=== PATIENT | female | born 1930 | race Caucasian/White ===

== ENCOUNTER 2016-12-03 14:52 | Observation (INO) | payer MEDICARE ==
[~2016-12-03] VITALS: Ht 165.1 cm; Wt 53.6 kg
[~2016-12-03 14:52] MED LIST: COUM5TAB PO; DIGO.125 PO; DONE5TAB14 PO; LORA0.5T PO; TEMA15 PO; VITATAB25 PO
[2016-12-03 15:05] VITALS: BP 151/103; PULSE 70; RESP 16; TEMP 97.9; O2SAT 97
[2016-12-03 16:19] LABS: AUTOMATED NEUTROPHIL # 5.5 TH/MM3 (1.8-7.7); BASOPHIL # 0.1 TH/MM3 (0-0.2); BASOPHIL % 0.8 % (0.0-2.0); EOSINOPHIL # 0.1 TH/MM3 (0-0.4); EOSINOPHIL % 0.7 % (0.0-4.0); HEMATOCRIT 47.8 % (35.0-46.0); HEMO FLAGS DIFF FINAL; LYMPH % 19.4 % (9.0-44.0); LYMPHOCYTE # 1.5 TH/MM3 (1.0-4.8); MEAN CELL VOLUME 98.7 FL (80.0-100.0); MEAN CORPUSCULAR HGB CONC 33.4 % (32.0-36.0); MONO % 9.3 % (0.0-8.0); NEUT % 69.8 % (16.0-70.0); PLATELET COUNT 433 TH/MM3 (150-450); RED BLOOD COUNT 4.84 MIL/MM3 (4.00-5.30); RED CELL DISTRIBUTION WIDTH 12.1 % (11.6-17.2); WHITE BLOOD COUNT 7.9 TH/MM3 (4.0-11.0)
[2016-12-03 16:28] LABS: CHLORIDE 104 MEQ/L (98-107); POTASSIUM 3.9 MEQ/L (3.5-5.1); SODIUM (NA) 140 MEQ/L (136-145)
[2016-12-03 16:31] LABS: ANION GAP 8 MEQ/L (5-15); BICARBONATE 27.6 MEQ/L (21.0-32.0); BLOOD UREA NITROGEN 16 MG/DL (7-18)
[2016-12-03 16:32] LABS: APTT (PATIENT) 43.7 SEC (24.3-30.1); INTERNATIONAL NORMALIZED RATIO 1.7 RATIO; PROTHROMBIN TIME - PATIENT 18.7 SEC (9.8-11.6)
[2016-12-03 16:34] LABS: ALT (GPT) 28 U/L (10-53); AST (GOT) 19 U/L (15-37); GLOMERULAR FILTRATION RATE 52 ML/MIN (>89)
[2016-12-03 16:36] LABS: TOTAL BILIRUBIN ADULT 0.9 MG/DL (0.2-1.0)
[2016-12-03 16:37] LABS: ALKALINE PHOSPHATASE 116 U/L (45-117)
--- NOTE | 2016-12-03 18:10 | PD ---
HPI Chief Complaint: Altered Mental Status Time Seen by Provider: 17:59 Travel History International Travel<30 days: No Contact w/Intl Traveler<30days: No Traveled to known affect area: No History of Present Illness HPI 86 y/o female presents with family after being seen at [facility] 2 times for a pelvic fracture on the right and another visit for a urinary tract infection. She just got started on ciprofloxacin and she's had a decline in her mental status. They state that she hasn't had an additional fall but they cannot take care of her at home given her decline. She hasn't had other complaints. History is limited from patient and mainly obtained from family. PFSH Past Medical History Arthritis: Yes Blood Disorders: No Heart Rhythm Problems: Yes (a-fib) Cancer: No Cardiovascular Problems: Yes Diminished Hearing: Yes (HEARING AIDS) Endocrine: No Genitourinary: No Immune Disorder: No Musculoskeletal: Yes Neurologic: No Psychiatric: No Reproductive: No Respiratory: No Menopausal: Yes Past Surgical History Abdominal Surgery: Yes (appendectomy) Appendectomy: Yes Gynecologic Surgery: Yes (hysterectomy) Hysterectomy: Yes Joint Replacement: Yes (melisa hips) Social History Alcohol Use: Yes (wine occ) Tobacco Use: No Substance Use: No Allergies-Medications (Allergen,Severity, Reaction): Coded Allergies: Tetanus Toxoid (Verified Allergy, Severe, 12/03/16) Uncoded Allergies: SOB (Allergy, Unknown, 06/27/03) TETNAUS (Allergy, Unknown, 06/27/03) Reported Meds & Prescriptions Reported Meds & Active Scripts Active Reported Xarelto (Rivaroxaban) 20 Mg Tab 20 Mg PO DAILY Digoxin 0.25 Mg Tab 0.25 Mg PO DAILY Ciprofloxacin (Ciprofloxacin HCl) 500 Mg Tab 500 Mg PO BID Oxycodone (Oxycodone HCl) 5 Mg Tab 5 Mg PO Q8H PRN Review of Systems ROS Limitations: Poor Historian Except as stated in HPI: all other systems reviewed are Neg Physical Exam Narrative General: 86 y/o patient in no apparent distress Skin: Warm and dry Eyes: Pupils equal NECK: no pain with range of motion Cardiovascular: Regular rate and rhythm Respiratory: Normal respiratory effort noted Abdomen: soft, nontender, nondistended Extremities: Pain with palpation of right upper pelvis, neurovascularly intact, no pain with rom of other joints Neuro: awake, moves all extremities, clear speech Data Data Last Documented VS Vital Signs Date Time Temp Pulse Resp B/P Pulse Ox O2 Delivery O2 Flow Rate FiO2 12/03/16 15:05 97.9 70 16 151/103 97 Orders Complete Blood Count With Diff (12/03/16 15:51) Comprehensive Metabolic Panel (12/03/16 15:51) Prothrombin Time / Inr (Pt) (12/03/16 15:51) Act Partial Throm Time (Ptt) (12/03/16 15:51) Ct Brain W/O Iv Contrast(Rout) (12/03/16 15:51) Urinalysis - C+S If Indicated (12/03/16 15:51) Digoxin (12/03/16 15:53) Pelvis, Ap Only (Routine) (12/03/16 ) Cath For Specimen (12/03/16 18:35) Labs Laboratory Tests Test 12/03/16 16:10 White Blood Count 7.9 TH/MM3 Red Blood Count 4.84 MIL/MM3 Hemoglobin 16.0 GM/DL Hematocrit 47.8 % Mean Corpuscular Volume 98.7 FL Mean Corpuscular Hemoglobin 33.0 PG Mean Corpuscular Hemoglobin 33.4 % Concent Red Cell Distribution Width 12.1 % Platelet Count 433 TH/MM3 Mean Platelet Volume 7.0 FL Neutrophils (%) (Auto) 69.8 % Lymphocytes (%) (Auto) 19.4 % Monocytes (%) (Auto) 9.3 % Eosinophils (%) (Auto) 0.7 % Basophils (%) (Auto) 0.8 % Neutrophils # (Auto) 5.5 TH/MM3 Lymphocytes # (Auto) 1.5 TH/MM3 Monocytes # (Auto) 0.7 TH/MM3 Eosinophils # (Auto) 0.1 TH/MM3 Basophils # (Auto) 0.1 TH/MM3 CBC Comment DIFF FINAL Differential Comment Prothrombin Time 18.7 SEC Prothromb Time International 1.7 RATIO Ratio Activated Partial 43.7 SEC Thromboplast Time Sodium Level 140 MEQ/L Potassium Level 3.9 MEQ/L Chloride Level 104 MEQ/L Carbon Dioxide Level 27.6 MEQ/L Anion Gap 8 MEQ/L Blood Urea Nitrogen 16 MG/DL Creatinine 1.00 MG/DL Estimat Glomerular Filtration 52 ML/MIN Rate Random Glucose 89 MG/DL Calcium Level 9.4 MG/DL Total Bilirubin 0.9 MG/DL Aspartate Amino Transf 19 U/L (AST/SGOT) Alanine Aminotransferase 28 U/L (ALT/SGPT) Alkaline Phosphatase 116 U/L Total Protein 7.4 GM/DL Albumin 3.7 GM/DL Digoxin Level 2.2 NG/ML MDM Medical Decision Making Medical Screen Exam Complete: Yes Emergency Medical Condition: Yes Medical Record Reviewed: Yes (past history confirm, had consents signed for records) Interpretation(s) CBC & BMP Diagram 12/03/16 16:10 Last [address] 12/03/16 1551 Signed Impressions: Service Date/Time: Thursday, December 03, 2016 17:57 - CONCLUSION: 1. No acute abnormality seen. 2. Mild atrophy. Bryson Oglesby MD Differential Diagnosis UTI, hyponatremia, intracranial, medication effect Narrative Course Ordered blood work, urinalysis, CT brain in triage after discussion with Dr. Andrade who is a family member. When patient got back in room added on pelvic x- ray as outside facility report not available yet. Blood work shows no emergent findings will await urine and imaging and reevaluate Physician Communication Physician Communication dr iyer to follow ua and reeval Karen Wiggins MD Dec 03, 2016 18:10
--- NOTE | 2016-12-03 18:21 | RADHPO ---
EXAM DATE/TIME: 12/03/2016 17:57 [facility] COMPARISON: No previous studies available for comparison. INDICATIONS : Altered mental status. RADIATION DOSE: 62.64 CTDIvol (mGy) MEDICAL HISTORY : None SURGICAL HISTORY : None. ENCOUNTER: Initial ACUITY: 1 day PAIN SCALE: 0/10 LOCATION: cranial TECHNIQUE: Multiple contiguous axial images were obtained of the head. Using automated exposure control and adj ustment of the mA and/or kV according to patient size, radiation dose was kept as low as reasonably a chievable to obtain optimal diagnostic quality images. FINDINGS: CEREBRUM: The ventricles and sulci are mildly widened. No evidence of midline shift, mass lesion, hemorrhage o r acute infarction. No extra-axial fluid collections are seen. POSTERIOR FOSSA: The cerebellum and brainstem are intact. The 4th ventricle is midline. The cerebellopontine angle i s unremarkable. EXTRACRANIAL: The visualized portion of the orbits is intact. SKULL: The calvaria is intact. No evidence of skull fracture. CONCLUSION: 1. No acute abnormality seen. 2. Mild atrophy. Bryson Oglesby MD on December 03, 2016 at 18:19 Board Certified Radiologist. This report was verified electronically.
[2016-12-03] MEDS ORDERED: DIGO0.25 PO (18:25)
[2016-12-03] MEDS ORDERED: OXYC-392 PO (18:25)
[2016-12-03] MEDS ORDERED: CIPR500T2 PO (18:25)
[2016-12-03] MEDS ORDERED: XARE20TA PO (18:25)
--- NOTE | 2016-12-03 19:10 | RADHPO ---
EXAM DATE/TIME: 12/03/2016 18:31 [facility] COMPARISON: CT ABDOMEN & PELVIS W CONTRAST, December 11, 2014, 3:27. INDICATIONS : Right side pelvis pain after fall. MEDICAL HISTORY : None. SURGICAL HISTORY : None. ENCOUNTER: Initial ACUITY: 2 weeks PAIN SCORE: 8/10 LOCATION: Right pelvis FINDINGS: The patient has bilateral hip prosthesis in place. There does appear to be increased density seen at the inferior pubic rami on the right. This could be from a fracture deformity. It also could be chr onic. It was not present on a prior CT of the abdomen and pelvis performed on 12/11/2014. No other possible fracture is seen. CONCLUSION: Area of increased density seen at the inferior pubic rami on the right. This could p otentially represent a fracture deformity. No other possible fracture is seen. The patient has bilat eral hip prostheses in place. Bryson Oglesby MD on December 03, 2016 at 19:02 Board Certified Radiologist. This report was verified electronically.
[2016-12-03 19:35] VITALS: BP 204/96; PULSE 73; RESP 16; O2SAT 95
[2016-12-03 19:43] LABS: BLOOD, URINE NEG (NEG); GLUCOSE,URINE NEG (NEG); KETONE, URINE TRACE mg/dL (NEG); PH, URINE 5.5 (5.0-8.5)
[2016-12-03 19:48] LABS: NITRITE,URINE POS (NEG)
[2016-12-03 19:50] LABS: METHOD OF COLLECTION CATH; RBC, URINE 0-3 /hpf (0-3); URINE COLOR YELLOW (YELLW/STRAW); WBC, URINE 0-2 /hpf (0-5)
[2016-12-03 19:51] LABS: COMMENT (UR) CULT NOT INDICATED; CULTURE IF INDICATED CULT NOT INDICATED
[2016-12-03 20:10] VITALS: BP 223/94; PULSE 63; RESP 16; O2SAT 97
--- NOTE | 2016-12-03 20:50 | PD ---
Physical Exam Time Seen by Provider: 20:[address] White left this patient with me to check the results of the urine and make a disposition. Data Data Last Documented VS Vital Signs Date Time Temp Pulse Resp B/P Pulse Ox O2 Delivery O2 Flow Rate FiO2 12/03/16 20:10 63 16 223/94 97 Room Air 12/03/16 15:05 97.9 Orders Complete Blood Count With Diff (12/03/16 15:51) Comprehensive Metabolic Panel (12/03/16 15:51) Prothrombin Time / Inr (Pt) (12/03/16 15:51) Act Partial Throm Time (Ptt) (12/03/16 15:51) Ct Brain W/O Iv Contrast(Rout) (12/03/16 15:51) Urinalysis - C+S If Indicated (12/03/16 15:51) Digoxin (12/03/16 15:53) Pelvis, Ap Only (Routine) (12/03/16 ) Cath For Specimen (12/03/16 18:35) Labs Laboratory Tests Test 12/03/16 12/03/16 16:10 19:30 White Blood Count 7.9 TH/MM3 Red Blood Count 4.84 MIL/MM3 Hemoglobin 16.0 GM/DL Hematocrit 47.8 % Mean Corpuscular Volume 98.7 FL Mean Corpuscular Hemoglobin 33.0 PG Mean Corpuscular Hemoglobin 33.4 % Concent Red Cell Distribution Width 12.1 % Platelet Count 433 TH/MM3 Mean Platelet Volume 7.0 FL Neutrophils (%) (Auto) 69.8 % Lymphocytes (%) (Auto) 19.4 % Monocytes (%) (Auto) 9.3 % Eosinophils (%) (Auto) 0.7 % Basophils (%) (Auto) 0.8 % Neutrophils # (Auto) 5.5 TH/MM3 Lymphocytes # (Auto) 1.5 TH/MM3 Monocytes # (Auto) 0.7 TH/MM3 Eosinophils # (Auto) 0.1 TH/MM3 Basophils # (Auto) 0.1 TH/MM3 CBC Comment DIFF FINAL Differential Comment Prothrombin Time 18.7 SEC Prothromb Time International 1.7 RATIO Ratio Activated Partial 43.7 SEC Thromboplast Time Sodium Level 140 MEQ/L Potassium Level 3.9 MEQ/L Chloride Level 104 MEQ/L Carbon Dioxide Level 27.6 MEQ/L Anion Gap 8 MEQ/L Blood Urea Nitrogen 16 MG/DL Creatinine 1.00 MG/DL Estimat Glomerular Filtration 52 ML/MIN Rate Random Glucose 89 MG/DL Calcium Level 9.4 MG/DL Total Bilirubin 0.9 MG/DL Aspartate Amino Transf 19 U/L (AST/SGOT) Alanine Aminotransferase 28 U/L (ALT/SGPT) Alkaline Phosphatase 116 U/L Total Protein 7.4 GM/DL Albumin 3.7 GM/DL Digoxin Level 2.2 NG/ML Urine Collection Type CATH Urine Color YELLOW Urine Turbidity CL Urine pH 5.5 Urine Specific [place] 1.025 Urine Protein TRACE mg/dL Urine Glucose (UA) NEG mg/dL Urine Ketones TRACE mg/dL Urine Occult Blood NEG Urine Nitrite POS Urine Bilirubin NEG Urine Leukocyte Esterase NEG Urine RBC 0-3 /hpf Urine WBC 0-2 /hpf Urine Bacteria NONE /hpf Microscopic Urinalysis Comment CULT NOT INDICATED MDM Medical Record Reviewed: Yes Supervised Visit with RICHARD: Yes Interpretation(s) The AP pelvis shows a possible fracture on the right inferior pubic ramus. The urinalysis shows positive nitrite with trace protein, trace ketones, specific gravity 1.025 but is otherwise normal and culture is not indicated. The CT brain shows no acute abnormality. The CBC shows a hemoglobin of 16 and hematocrit of 47.8 but is otherwise unremarkable. The coagulation profile shows a protein of 18.7 and INR 1.7 with a PTT of 43.7. The digoxin level was 2.2. Differential Diagnosis Fracture right inferior pubic ramus, intractable pain, inability to ambulate, electrolyte disorder, urinary tract infection, ischemic CVA, intracranial bleed unlikely, altered mental status Narrative Course The family states they cannot take care of this patient at home. The patient lives alone and she cannot take care of herself. They have a doctor's choice nurse come out twice daily every week. Dr. Castelan did not make any arrangements for admission to a rehabilitation center and simply told the patient's family to take her to the emergency room and get her admitted. The inferior pubic ramus fracture is now 2 weeks old and the radiologist reading call this only a possible fracture. All of was seen was an area of increased density on the right potentially representing a fracture deformity. The fall happened 2 weeks ago. The patient apparently has increased altered mental status and tries to get up out of bed and falls. Impression: Altered mental status, right inferior pubic ramus fracture Physician Communication Physician Communication I discussed the patient with PAC Bryson Dukes and the patient will be [address] Homar Rudolph. Diagnosis Primary Impression: Altered mental status, unspecified Additional Impression: Fracture of right inferior pubic ramus Admitting Information Admitting Physician Requests: Observation Lew Abreu MD Dec 03, 2016 20:50
[2016-12-03] MEDS ORDERED: hydrALAZINE HCL 20 MG/ML VIAL IV PUSH ONE (22:00)
[2016-12-03] MEDS ORDERED: SODIUM CHLORIDE 0.9% FLUSH 5 ML FLUSH FLUSH PRN ×2 (23:00)
[2016-12-03] MEDS ORDERED: ACETAMINOPHEN 325 MG TAB PO PRN (23:00)
[2016-12-03] MEDS ORDERED: SENNOSIDES 8.6 MG TAB PO PRN (23:00)
[2016-12-03] MEDS ORDERED: ONDANSETRON HCL 4 MG/2 ML VIAL IVP PRN (23:00)
[2016-12-03] MEDS ORDERED: NALOXONE HCL 0.4 MG/ML AMP IV PRN (23:00)
[2016-12-03 23:07] VITALS: O2SAT 96
[2016-12-04] VITALS (10 sets, daily range): BP systolic 137–184; BP diastolic 84–103; PULSE 61–87; RESP 14–20; TEMP 96–97.8; O2SAT 93–98
[2016-12-04 06:36] LABS: POTASSIUM 3.7 MEQ/L (3.5-5.1)
[2016-12-04 06:41] LABS: BICARBONATE 24.3 MEQ/L (21.0-32.0)
[2016-12-04 07:00] LABS: DIGOXIN 1.8 NG/ML (0.8-2.0)
[2016-12-04] MEDS ORDERED: RIVAROXABAN 20 MG TAB PO SCH ×2 (09:00→09:15)
[2016-12-04] MEDS ORDERED: SODIUM CHLORIDE 0.9% FLUSH 5 ML FLUSH FLUSH SCH (09:00)
--- NOTE | 2016-12-04 09:30 | MH ---
cc: HOMAR WAY MD DATE OF ADMISSION: 12/03/2016 CHIEF COMPLAINT Altered mental status. HISTORY OF PRESENT ILLNESS This is an 86-year-old female with past medical and surgical history significant for arthritis, atrial fibrillation, hearing problem, history of appendectomy, hysterectomy, bilateral hip surgery who came to the ER at [facility]. She has been seen at [facility] two times for pelvic fracture on the right side and another visit for urinary tract infection. She got started on ciprofloxacin and she had a decline in her mental status. She states that she has not had any recent fall but they cannot take care of her at home and said she wanted to be going to a penitentiary. Other than that, she has mild pain in the hip area. Other than that, nothing significant. Nurse Sully was present during the whole time during the admission. PAST MEDICAL AND SURGICAL HISTORY As dictated above. SOCIAL HISTORY Denies smoking. Drinks wine occasionally. Denies any drug abuse. Lives at home. 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 FAMILY HISTORY Nothing significant. ALLERGY TETANUS TOXOID. MEDICATIONS 1. Xarelto 20 mg p.o. daily. 2. Digoxin 0.25 mg p.o. daily. 3. Ciprofloxacin 500 mg p.o. b.i.d. 4. Oxycodone 5 mg p.o. q.8 h. REVIEW OF SYSTEMS The patient is not a good historian and also had pain in the right-sided pelvic area. Not reliable because of poor historian. PHYSICAL EXAMINATION GENERAL: This is an 86-year female laying on the bed, not in any acute distress. VITAL SIGNS: Temperature 97.8, heart rate 81, respiration 18, blood pressure 155/103, O2 saturation 96% on room air. HEENT: Normocephalic. EOMI. PERRL. Oral mucosa moist. NECK: Supple. No visible thyromegaly or neck mass. Trachea central. CVS: Regular rate and rhythm. LUNGS: Respirations clear to auscultation bilaterally. ABDOMEN: Soft, nontender. Bowel sounds audible. EXTREMITIES: No cyanosis, no clubbing. Full range of motion of all extremities. NEURO: Awake, alert, oriented x 2, moving all extremities. Skin: Warm and dry. PSYCH: The patient is cooperative. Mood and affect normal. LABORATORY DATA CBC is totally unremarkable except for hemoglobin of 16.0 - high, hematocrit 47.8 - high, monos 9.3 - high. BMP totally unremarkable except for GFR 71 - low. LFTs are normal. PT 18.7, INR 0.7, APTT 43.7. Urine examination shows trace of ketones, positive nitrite. Digoxin level is 1.8. PELVIC X-RAY Shows an area of increased density seen at the inferior pubic rami on the right. This could potentially represent a fracture deformity. No other possible fracture is seen. The patient has bilateral hip prostheses in place. CT BRAIN Done and shows no acute abnormality seen. Mild atrophy. ASSESSMENT AND PLAN 1. This is an 86-year-old female who came to the ER, diagnosed with right-sided pubic rami fracture, status post fall recently. Conservative management. 2. Altered mental status. The patient is more awake, alert and oriented now. The patient had a urinary tract infection, most likely secondary to UTI. The patient is on ciprofloxacin. 3. Urinary tract infection. The patient on ciprofloxacin. 4. History of hypertension. Started the patient on home medications plus also started the patient on clonidine 0.1 mg p.o. q.6 hours p.r.n. if BP above 170/90. 5. DVT prophylaxis: Patient on Xarelto 20 mg. 6. GI prophylaxis. Famotidine 20 mg twice a day. We are going to manage the patient on a daily basis and make recommendations on a daily basis. Homar Way MD EA/ALEXANDRA /9:03 AM /9:14 AM
[2016-12-04] MEDS: cloNIDine HCL 0.1 MG TAB PO PRN (10:31)
[2016-12-04] MEDS: CIPROFLOXACIN 500 MG TAB PO SCH ×2 (10:31→21:30)
[2016-12-04] MEDS: DIGOXIN 0.25 MG TAB PO SCH (10:31)
[2016-12-04] MEDS: SODIUM CHLORIDE 0.9% FLUSH 5 ML FLUSH FLUSH SCH ×2 (10:31→21:30)
[2016-12-04] MEDS: FAMOTIDINE 20 MG TAB PO SCH ×2 (10:32→21:30)
--- NOTE | 2016-12-04 17:00 | HHI.FF ---
Face to Face Verification Diagnosis: (1) Altered mental status, unspecified (2) Fracture of right inferior pubic ramus (3) Dizziness Physical Therapy Order: Evaluate and Treat, Improve ambulation, Strength and gait training Occupational Therapy Order: Evaluate and Treat, Gross motor coordination Home Health Nursing Order: Medical education Medication education-adverse effect Home Health Aide Order: To Assist In: Bathing and personal care Hardware Manager Order: To Evaluate: Living conditions/environment I have seen patient Migdalia Lu on 12/04/16. My clinical findings support the need for the requested home health care services because: Ltd mobility - disease progression I certify that my clinical findings support that this patient is homebound because: Unsteady gait/balance Unable to use public transportation Homar Rudolph MD Dec 04, 2016 17:00
[2016-12-05] VITALS (9 sets, daily range): BP systolic 139–158; BP diastolic 76–102; PULSE 56–69; RESP 14–20; TEMP 95.8–98.6; O2SAT 95–100
[2016-12-05] MEDS: cloNIDine HCL 0.1 MG TAB PO PRN (01:08)
[2016-12-05 06:42] LABS: AUTOMATED NEUTROPHIL # 4.8 TH/MM3 (1.8-7.7); BASOPHIL % 0.7 % (0.0-2.0); EOSINOPHIL # 0.1 TH/MM3 (0-0.4); EOSINOPHIL % 1.1 % (0.0-4.0); HEMATOCRIT 42.5 % (35.0-46.0); HEMO FLAGS DIFF FINAL; LYMPH % 19.5 % (9.0-44.0); LYMPHOCYTE # 1.3 TH/MM3 (1.0-4.8); MEAN CELL VOLUME 99.7 FL (80.0-100.0); MEAN CORPUSCULAR HEMOGLOBIN 33.2 PG (27.0-34.0); MEAN CORPUSCULAR HGB CONC 33.3 % (32.0-36.0); MONO % 9.5 % (0.0-8.0); NEUT % 69.2 % (16.0-70.0); PLATELET COUNT 370 TH/MM3 (150-450); RED BLOOD COUNT 4.26 MIL/MM3 (4.00-5.30); RED CELL DISTRIBUTION WIDTH 12.2 % (11.6-17.2); WHITE BLOOD COUNT 6.8 TH/MM3 (4.0-11.0)
[2016-12-05 06:51] LABS: CHLORIDE 106 MEQ/L (98-107); SODIUM (NA) 141 MEQ/L (136-145)
[2016-12-05 07:33] LABS: ALKALINE PHOSPHATASE 104 U/L (45-117); ALT (GPT) 20 U/L (10-53); ANION GAP 9 MEQ/L (5-15); AST (GOT) 15 U/L (15-37); BICARBONATE 26.3 MEQ/L (21.0-32.0); BLOOD UREA NITROGEN 12 MG/DL (7-18); GLOMERULAR FILTRATION RATE 54 ML/MIN (>89); TOTAL BILIRUBIN ADULT 1.1 MG/DL (0.2-1.0)
--- NOTE | 2016-12-05 08:37 | HHI.PR ---
Subjective Remarks Patient has some right groin area pain on walking and certain movements As per patient unable to walk properly felt that she was one of off Did move her bowels yesterday No other pain Review of system for 10 point system otherwise unremarkable Objective Objective Results - Vital Signs Date Time Temp Pulse Resp B/P Pulse Ox O2 Delivery O2 Flow Rate FiO2 12/05/16 08:12 95.8 61 18 141/79 98 12/05/16 07:32 97 21 12/05/16 04:00 97.0 59 20 139/76 96 12/05/16 00:00 97.1 69 20 157/102 95 12/04/16 20:00 97.4 71 20 171/93 93 12/04/16 20:00 96 21 12/04/16 16:30 96.8 72 16 143/93 94 12/04/16 13:03 96.0 61 14 137/84 97 12/04/16 12:05 71 12/04/16 10:00 96 21 I/O 12/04/16 12/04/16 12/04/16 12/05/16 12/05/16 12/05/16 07:00 15:00 23:00 07:00 15:00 23:00 Intake Total 60 ml 250 ml 860 ml 60 ml Output Total 150 ml Balance 60 ml 250 ml 710 ml 60 ml Intake Oral 60 ml 250 ml 860 ml 60 ml IV Total 0 ml 0 ml Output Urine Total 150 ml # Voids 1 5 2 # Bowel Movements 0 4 1 Result Diagram: 12/05/16 0535 12/05/16 0535 Other Results Laboratory Tests Test 12/05/16 05:35 White Blood Count 6.8 Red Blood Count 4.26 Hemoglobin 14.2 Hematocrit 42.5 Mean Corpuscular Volume 99.7 Mean Corpuscular Hemoglobin 33.2 Mean Corpuscular Hemoglobin 33.3 Concent Red Cell Distribution Width 12.2 Platelet Count 370 Mean Platelet Volume 7.7 Neutrophils (%) (Auto) 69.2 Lymphocytes (%) (Auto) 19.5 Monocytes (%) (Auto) 9.5 Eosinophils (%) (Auto) 1.1 Basophils (%) (Auto) 0.7 Neutrophils # (Auto) 4.8 Lymphocytes # (Auto) 1.3 Monocytes # (Auto) 0.6 Eosinophils # (Auto) 0.1 Basophils # (Auto) 0.0 CBC Comment DIFF FINAL Differential Comment Sodium Level 141 Potassium Level 4.0 Chloride Level 106 Carbon Dioxide Level 26.3 Anion Gap 9 Blood Urea Nitrogen 12 Creatinine 0.97 Estimat Glomerular Filtration 54 Rate Random Glucose 102 Calcium Level 8.8 Total Bilirubin 1.1 Aspartate Amino Transf 15 (AST/SGOT) Alanine Aminotransferase 20 (ALT/SGPT) Alkaline Phosphatase 104 Total Protein 5.9 Albumin 3.0 Physical Exam Physical Exam GENERAL: This is an 86-year female laying on the bed, not in any acute distress. VITAL SIGNS: Reviewed HEENT: Normocephalic. EOMI. PERRL. Oral mucosa moist. NECK: Supple. No visible thyromegaly or neck mass. Trachea central. CVS: Regular rate and rhythm. LUNGS: Respirations clear to auscultation bilaterally. ABDOMEN: Soft, nontender. Bowel sounds audible. Slightly tender in the right groin area near fracture area EXTREMITIES: No cyanosis, no clubbing. Full range of motion of all extremities. NEURO: Awake, alert, oriented x 2, moving all extremities. Skin: Warm and dry. PSYCH: The patient is cooperative. Mood and affect normal. A/P Assessment and Plan 1. This is an 86-year-old female who came to the ER, diagnosed with right-sided pubic rami fracture, status post fall recently. Conservative management. Continue physical therapy 2. Altered mental status. The patient is more awake, alert and oriented now. The patient had a urinary tract infection, most likely secondary to UTI. The patient is on ciprofloxacin. 3. Urinary tract infection. The patient on ciprofloxacin. 4. History of hypertension. Started the patient on home medications plus also started the patient on clonidine 0.1 mg p.o. q.6 hours p.r.n. if BP above 170/90. Keep monitoring blood pressure 5. DVT prophylaxis: Patient on Xarelto 20 mg. 6. GI prophylaxis. Famotidine 20 mg twice a day. We are going to manage the patient on a daily basis and make recommendations on a daily basis. Lele Julio MD Dec 05, 2016 08:37
[2016-12-05] MEDS: SODIUM CHLORIDE 0.9% FLUSH 5 ML FLUSH FLUSH SCH ×2 (10:45→20:50)
[2016-12-05] MEDS: DIGOXIN 0.25 MG TAB PO SCH (10:46)
[2016-12-05] MEDS: FAMOTIDINE 20 MG TAB PO SCH ×2 (10:46→20:50)
[2016-12-05] MEDS: CIPROFLOXACIN 500 MG TAB PO SCH ×2 (10:46→20:49)
[2016-12-06] VITALS (7 sets, daily range): BP systolic 132–169; BP diastolic 77–105; PULSE 66–80; RESP 12–20; TEMP 96.5–98; O2SAT 93–99
[2016-12-06] MEDS: RIVAROXABAN 15 MG TAB PO SCH (08:48)
[2016-12-06] MEDS: CIPROFLOXACIN 500 MG TAB PO SCH ×2 (08:48→20:12)
[2016-12-06] MEDS: DIGOXIN 0.25 MG TAB PO SCH (08:48)
[2016-12-06] MEDS: FAMOTIDINE 20 MG TAB PO SCH ×2 (08:48→20:12)
[2016-12-06] MEDS: SODIUM CHLORIDE 0.9% FLUSH 5 ML FLUSH FLUSH SCH ×2 (08:48→20:12)
--- NOTE | 2016-12-06 09:30 | HHI.PR ---
Subjective History of Present Illness Patient feel better no acute issue D/W RN Rosa Maria at bed side Patient need to be at rehab. but did not qualify inpatient admission in order to go to rehab and have nobody to take care at home. Patient unable to take care herself. Review of Systems Constitutional Constitutional: Fatigue, Weakness Musculoskeletal MS: Weakness MS Remarks Pelvic pain secondary to pelvic fracture. Vitals/Results Intake & Output 12/05/16 12/05/16 12/06/16 15:00 23:00 07:00 Intake Total 800 ml 420 ml Balance 800 ml 420 ml Intake Oral 800 ml 420 ml # Voids 2 3 1 # Bowel Movements 3 Vital Signs Vital Signs Date Time Temp Pulse Resp B/P Pulse Ox O2 Delivery O2 Flow Rate FiO2 12/06/16 08:53 97.3 69 16 169/93 96 12/06/16 08:37 99 21 12/06/16 04:01 97.7 80 18 132/86 97 12/06/16 00:01 98.0 66 16 145/77 96 12/05/16 20:01 98.1 61 14 158/83 97 12/05/16 19:14 96 12/05/16 16:12 98.6 57 18 141/89 100 12/05/16 12:30 98.5 56 18 142/89 100 CBC/BMP: 12/05/16 0535 12/05/16 0535 Physical Exam General General Appearance: No Acute Distress, Comfortable Eyes Eye Exam: Pupils Equal, Pupils Reactive, Sclera White, Extraocular Movement Intact Throat Throat Exam: Oral Mucosa [place] & Moist, Oral Pharynx Normal Neck Neck Exam: Neck Supple, Trachea Midline Pulmonary Resp Exam: Clear Bilaterally, Breath Sounds Equal, No Distress Cardiology CV Exam: Regular, Normal Sinus Rhythm, Good Perfusion Gastrointestinal/Abdomen GI Exam: Soft, Non-Tender, Bowel Sounds Present Musculoskeletal MS Exam: Normal Tone Integumentary Skin Exam: Clear, Warm, Dry, Intact Extremeties Extremities Exam: No Edema Neurologic Neuro Exam: Alert, Awake, Oriented, Moving All Extremities Psychiatric Psych Exam: Appropriate Responses VTE Prophylaxis VTE Remarks Xarelto. PUD Prophylasis PUD Prophylaxis: Protonix Assessment/Plan Assessment/Plan ASSESSMENT AND PLAN 1. This is an 86-year-old female who came to the ER, diagnosed with right-sided pubic rami fracture, status post fall recently. Conservative management. 2. Altered mental status. The patient is more awake, alert and oriented now. The patient had a urinary tract infection, most likely secondary to UTI. The patient is on ciprofloxacin. 3. Urinary tract infection. The patient on ciprofloxacin. 4. History of hypertension. Started the patient on home medications plus also started the patient on clonidine 0.1 mg p.o. q.6 hours p.r.n. if BP above 170/90. 5. DVT prophylaxis: Patient on Xarelto 20 mg. 6. GI prophylaxis. Famotidine 20 mg twice a day. Check CBC with diff CMP in AM. We are going to manage the patient on a daily basis and make recommendations on a daily basis. Patient need to be at rehab. but did not qualify inpatient admission in order to go to rehab and have nobody to take care at home. Patient unable to take care herself. Discussed Condition with: Patient Homar Rudolph MD Dec 06, 2016 09:29
[2016-12-07 00:01] VITALS: BP 199/99; PULSE 62; RESP 16; TEMP 98; O2SAT 94
[2016-12-07] MEDS: cloNIDine HCL 0.1 MG TAB PO PRN (02:47)
[2016-12-07 02:48] VITALS: BP 170/90
--- NOTE | 2016-12-07 05:04 | HHI.PR ---
Subjective History of Present Illness Patient feel better no acute issue D/W RN Rosa Maria at bed side Patient need to be at rehab. but did not qualify inpatient admission in order to go to rehab and have nobody to take care at home. Patient unable to take care herself. d/w comp field case manager Ary...family arranging Rehab possible DC Tomorrow. Review of Systems Constitutional Constitutional: Fatigue, Weakness Musculoskeletal MS: Weakness MS Remarks Pelvic pain secondary to pelvic fracture. Vitals/Results Intake & Output 12/06/16 12/06/16 12/07/16 15:00 23:00 07:00 Intake Total 800 ml Balance 800 ml Intake Oral 800 ml # Voids 6 3 # Bowel Movements 2 1 Vital Signs Vital Signs Date Time Temp Pulse Resp B/P Pulse Ox O2 Delivery O2 Flow Rate FiO2 12/07/16 02:48 170/90 12/07/16 00:01 98.0 62 16 199/99 94 12/06/16 20:01 98.0 77 12 160/105 93 12/06/16 16:00 96.5 67 20 151/94 98 12/06/16 12:00 96.8 66 20 139/86 95 12/06/16 08:53 97.3 69 16 169/93 96 12/06/16 08:37 99 21 CBC/BMP: 12/05/16 0535 12/05/16 0535 Physical Exam General General Appearance: No Acute Distress, Comfortable Eyes Eye Exam: Pupils Equal, Pupils Reactive, Sclera White, Extraocular Movement Intact Throat Throat Exam: Oral Mucosa [place] & Moist, Oral Pharynx Normal Neck Neck Exam: Neck Supple, Trachea Midline Pulmonary Resp Exam: Clear Bilaterally, Breath Sounds Equal, No Distress Cardiology CV Exam: Regular, Normal Sinus Rhythm, Good Perfusion Gastrointestinal/Abdomen GI Exam: Soft, Non-Tender, Bowel Sounds Present Musculoskeletal MS Exam: Normal Tone Integumentary Skin Exam: Clear, Warm, Dry, Intact Extremeties Extremities Exam: No Edema Neurologic Neuro Exam: Alert, Awake, Oriented, Moving All Extremities Psychiatric Psych Exam: Appropriate Responses VTE Prophylaxis VTE Remarks Xarelto. PUD Prophylasis PUD Prophylaxis: Protonix Assessment/Plan Assessment/Plan ASSESSMENT AND PLAN This is an 86-year-old female who came to the ER, diagnosed with 1. Right-sided pubic rami fracture, status post fall recently. Conservative management. 2. Altered mental status. The patient is more awake, alert and oriented now. The patient had a urinary tract infection, most likely secondary to UTI. The patient is on ciprofloxacin. 3. Urinary tract infection. The patient on ciprofloxacin. recheck UA. 4. History of hypertension. patient on home medications plus also started the patient on clonidine 0.1 mg p.o. q.6 hours p.r.n. if BP above 170/90. 5. DVT prophylaxis: Patient on Xarelto 20 mg. 6. GI prophylaxis. Famotidine 20 mg twice a day. Check CBC with diff CMP in AM. We are going to manage the patient on a daily basis and make recommendations on a daily basis. Patient need to be at rehab. but did not qualify inpatient admission in order to go to rehab and have nobody to take care at home. Patient unable to take care herself. d/w comp field case manager Ary...family arranging Rehab possible DC Tomorrow. Discussed Condition with: Patient Homar Rudolph MD Dec 07, 2016 05:03
[2016-12-07 06:57] LABS: AUTOMATED NEUTROPHIL # 4.5 TH/MM3 (1.8-7.7); BASOPHIL # 0.1 TH/MM3 (0-0.2); BASOPHIL % 1.1 % (0.0-2.0); EOSINOPHIL # 0.1 TH/MM3 (0-0.4); EOSINOPHIL % 1.5 % (0.0-4.0); HEMATOCRIT 41.9 % (35.0-46.0); LYMPH % 22.3 % (9.0-44.0); LYMPHOCYTE # 1.6 TH/MM3 (1.0-4.8); MEAN CELL VOLUME 99.1 FL (80.0-100.0); MEAN CORPUSCULAR HEMOGLOBIN 33.7 PG (27.0-34.0); MONO % 10.5 % (0.0-8.0); NEUT % 64.6 % (16.0-70.0); PLATELET COUNT 365 TH/MM3 (150-450); RED BLOOD COUNT 4.23 MIL/MM3 (4.00-5.30); RED CELL DISTRIBUTION WIDTH 12.2 % (11.6-17.2)
[2016-12-07 07:00] LABS: HEMO FLAGS DIFF FINAL
[2016-12-07 07:08] LABS: CHLORIDE 105 MEQ/L (98-107); POTASSIUM 3.7 MEQ/L (3.5-5.1); SODIUM (NA) 141 MEQ/L (136-145)
[2016-12-07 07:14] LABS: ANION GAP 11 MEQ/L (5-15); BICARBONATE 25.4 MEQ/L (21.0-32.0); BLOOD UREA NITROGEN 12 MG/DL (7-18)
[2016-12-07 07:17] LABS: ALT (GPT) 25 U/L (10-53); AST (GOT) 23 U/L (15-37); GLOMERULAR FILTRATION RATE 61 ML/MIN (>89)
[2016-12-07 07:18] LABS: TOTAL BILIRUBIN ADULT 1.1 MG/DL (0.2-1.0)
[2016-12-07 07:20] LABS: ALKALINE PHOSPHATASE 109 U/L (45-117)
[2016-12-07] MEDS: CIPROFLOXACIN 500 MG TAB PO SCH ×2 (08:40→20:51)
[2016-12-07] MEDS: FAMOTIDINE 20 MG TAB PO SCH ×2 (08:40→20:50)
[2016-12-07] MEDS: DIGOXIN 0.25 MG TAB PO SCH (08:40)
[2016-12-07] MEDS: RIVAROXABAN 15 MG TAB PO SCH (08:40)
[2016-12-07] MEDS: SODIUM CHLORIDE 0.9% FLUSH 5 ML FLUSH FLUSH SCH ×2 (08:43→20:51)
[2016-12-07 08:59] VITALS: BP 155/99; PULSE 70; RESP 16; TEMP 97.5; O2SAT 95
[2016-12-07 09:34] LABS: INTERNATIONAL NORMALIZED RATIO 1.2 RATIO; PROTHROMBIN TIME - PATIENT 13.2 SEC (9.8-11.6)
[2016-12-07 12:38] VITALS: BP 145/92; PULSE 63; RESP 18; TEMP 97.4; O2SAT 98
[2016-12-07 16:00] VITALS: BP 142/77; PULSE 59; RESP 15; TEMP 97.5; O2SAT 97
[2016-12-07 20:00] VITALS: BP 165/92; PULSE 54; RESP 20; TEMP 98; O2SAT 98
[2016-12-08] VITALS: BP 167/98; PULSE 75; RESP 20; TEMP 97.1; O2SAT 97
[2016-12-08] MEDS: cloNIDine HCL 0.1 MG TAB PO PRN (00:10)
[2016-12-08 01:10] VITALS: BP 166/80
[2016-12-08 01:50] VITALS: BP 140/72
[2016-12-08 06:48] LABS: CHLORIDE 106 MEQ/L (98-107); POTASSIUM 3.9 MEQ/L (3.5-5.1); SODIUM (NA) 141 MEQ/L (136-145)
[2016-12-08 06:49] LABS: AUTOMATED NEUTROPHIL # 3.7 TH/MM3 (1.8-7.7); BASOPHIL # 0.1 TH/MM3 (0-0.2); BASOPHIL % 1.2 % (0.0-2.0); EOSINOPHIL # 0.1 TH/MM3 (0-0.4); EOSINOPHIL % 1.7 % (0.0-4.0); HEMATOCRIT 43.8 % (35.0-46.0); HEMO FLAGS DIFF FINAL; LYMPHOCYTE # 1.9 TH/MM3 (1.0-4.8); MEAN CELL VOLUME 98.8 FL (80.0-100.0); MEAN CORPUSCULAR HEMOGLOBIN 33.1 PG (27.0-34.0); MEAN CORPUSCULAR HGB CONC 33.5 % (32.0-36.0); MONO % 9.8 % (0.0-8.0); NEUT % 57.3 % (16.0-70.0); PLATELET COUNT 391 TH/MM3 (150-450); RED BLOOD COUNT 4.43 MIL/MM3 (4.00-5.30); WHITE BLOOD COUNT 6.4 TH/MM3 (4.0-11.0)
[2016-12-08 06:57] LABS: ANION GAP 11 MEQ/L (5-15); BICARBONATE 24.1 MEQ/L (21.0-32.0); BLOOD UREA NITROGEN 9 MG/DL (7-18)
[2016-12-08 07:00] LABS: ALT (GPT) 29 U/L (10-53); AST (GOT) 23 U/L (15-37); GLOMERULAR FILTRATION RATE 63 ML/MIN (>89)
[2016-12-08 07:03] LABS: ALKALINE PHOSPHATASE 111 U/L (45-117)
[2016-12-08 08:00] VITALS: BP 150/74; PULSE 68; RESP 18; TEMP 97.2; O2SAT 99
--- NOTE | 2016-12-08 08:33 | HHI.PR ---
Subjective History of Present Illness Patient feel better no acute issue D/W ELVIS Orozco at bed side. Patient need to be at rehab. but did not qualify inpatient admission in order to go to rehab and have nobody to take care at home. Patient unable to take care herself. case work aide working on it...family wants the patient to go home with [facility]. OK to DC Home with [facility]. Review of Systems Constitutional Constitutional: Fatigue, Weakness Musculoskeletal MS: Weakness MS Remarks Pelvic pain secondary to pelvic fracture. Vitals/Results Intake & Output 12/07/16 12/07/16 12/08/16 15:00 23:00 07:00 Intake Total 1060 ml 60 ml Balance 1060 ml 60 ml Intake Oral 1060 ml 60 ml # Voids 3 1 # Bowel Movements 4 0 Vital Signs Vital Signs Date Time Temp Pulse Resp B/P Pulse Ox O2 Delivery O2 Flow Rate FiO2 12/08/16 08:00 97.2 68 18 150/74 99 12/08/16 01:50 140/72 Automatic Cuff 12/08/16 01:10 166/80 12/08/16 00:00 97.1 75 20 167/98 97 12/07/16 20:00 98.0 54 20 165/92 98 12/07/16 16:00 97.5 59 15 142/77 97 12/07/16 12:38 97.4 63 18 145/92 98 12/07/16 08:59 97.5 70 16 155/99 95 CBC/BMP: 12/08/16 0525 12/08/16 0525 Lab Results Laboratory Tests Test 12/08/16 05:25 White Blood Count 6.4 TH/MM3 Red Blood Count 4.43 MIL/MM3 Hemoglobin 14.7 GM/DL Hematocrit 43.8 % Mean Corpuscular Volume 98.8 FL Mean Corpuscular Hemoglobin 33.1 PG Mean Corpuscular Hemoglobin 33.5 % Concent Red Cell Distribution Width 12.0 % Platelet Count 391 TH/MM3 Mean Platelet Volume 7.8 FL Neutrophils (%) (Auto) 57.3 % Lymphocytes (%) (Auto) 30.0 % Monocytes (%) (Auto) 9.8 % Eosinophils (%) (Auto) 1.7 % Basophils (%) (Auto) 1.2 % Neutrophils # (Auto) 3.7 TH/MM3 Lymphocytes # (Auto) 1.9 TH/MM3 Monocytes # (Auto) 0.6 TH/MM3 Eosinophils # (Auto) 0.1 TH/MM3 Basophils # (Auto) 0.1 TH/MM3 CBC Comment DIFF FINAL Differential Comment Sodium Level 141 MEQ/L Potassium Level 3.9 MEQ/L Chloride Level 106 MEQ/L Carbon Dioxide Level 24.1 MEQ/L Anion Gap 11 MEQ/L Blood Urea Nitrogen 9 MG/DL Creatinine 0.85 MG/DL Estimat Glomerular Filtration 63 ML/MIN Rate Random Glucose 94 MG/DL Calcium Level 8.7 MG/DL Total Bilirubin 1.0 MG/DL Aspartate Amino Transf 23 U/L (AST/SGOT) Alanine Aminotransferase 29 U/L (ALT/SGPT) Alkaline Phosphatase 111 U/L Total Protein 5.9 GM/DL Albumin 2.9 GM/DL Physical Exam General General Appearance: No Acute Distress, Comfortable Eyes Eye Exam: Pupils Equal, Pupils Reactive, Sclera White, Extraocular Movement Intact Throat Throat Exam: Oral Mucosa [place] & Moist, Oral Pharynx Normal Neck Neck Exam: Neck Supple, Trachea Midline Pulmonary Resp Exam: Clear Bilaterally, Breath Sounds Equal, No Distress Cardiology CV Exam: Regular, Normal Sinus Rhythm, Good Perfusion Gastrointestinal/Abdomen GI Exam: Soft, Non-Tender, Bowel Sounds Present Musculoskeletal MS Exam: Normal Tone Integumentary Skin Exam: Clear, Warm, Dry, Intact Extremeties Extremities Exam: No Edema Neurologic Neuro Exam: Alert, Awake, Oriented, Moving All Extremities Psychiatric Psych Exam: Appropriate Responses VTE Prophylaxis VTE Remarks Xarelto. PUD Prophylasis PUD Prophylaxis: Protonix Assessment/Plan Assessment/Plan ASSESSMENT AND PLAN This is an 86-year-old female who came to the ER, diagnosed with 1. Right-sided pubic rami fracture, status post fall recently. Conservative management. 2. Altered mental status. The patient is more awake, alert and oriented now. The patient had a urinary tract infection, most likely secondary to UTI. The patient is on ciprofloxacin. 3. Urinary tract infection. The patient on ciprofloxacin. recheck UA. 4. History of hypertension. patient on home medications plus also started the patient on clonidine 0.1 mg p.o. q.6 hours p.r.n. if BP above 170/90. 5. DVT prophylaxis: Patient on Xarelto 20 mg. 6. GI prophylaxis. Famotidine 20 mg twice a day. Patient need to be at rehab. but did not qualify inpatient admission in order to go to rehab and have nobody to take care at home. Patient unable to take care herself. d/w case work aide Ary...family wants the patient to go home with [facility]. OK to DC Home with [facility]. F/U with PCP 1 Week. Discussed Condition with: Patient Homar Rudolph MD Dec 08, 2016 08:33
[2016-12-08] MEDS ORDERED: amLODIPine BESYLATE 5 MG TAB PO SCH (09:00)
[2016-12-08] MEDS: DIGOXIN 0.25 MG TAB PO SCH (09:37)
[2016-12-08] MEDS: FAMOTIDINE 20 MG TAB PO SCH (09:37)
[2016-12-08] MEDS: SODIUM CHLORIDE 0.9% FLUSH 5 ML FLUSH FLUSH SCH (09:37)
[2016-12-08] MEDS: RIVAROXABAN 15 MG TAB PO SCH (09:37)
[2016-12-08] MEDS: CIPROFLOXACIN 500 MG TAB PO SCH (09:37)
[2016-12-08] MEDS ORDERED: METO25TA3 PO (10:30)
--- NOTE | 2016-12-10 13:28 | MD ---
cc: HOMAR WAY MD ADMISSION DATE: 12/03/2016 DISCHARGE DATE: 12/08/2016 Okay to discharge the patient home with home health care. The patient is did not qualify for inpatient admission and unable to go to senior living. CONDITION AT THE TIME OF DISCHARGE Satisfactory. The patient and family wants the patient to go home with home health care and then they will arrange rehab after that. ACTIVITY As tolerated. DIET Cardiac diet ALLERGIES TETANUS TOXOID MEDICATIONS Includes: 1. Ciprofloxacin 500 grams twice a day 2. Digoxin 0.25 mg p.o. daily 3. Oxycodone 5 mg p.o. daily 4. Xarelto 20 mg p.o. daily 5. Metoprolol 25 mg twice a day The patient advised to follow up with PCP and also with orthopedics. ADMITTING DIAGNOSIS 1. Right-sided pubic rami fracture status post fall recently conservative management. 2. Altered mental status secondary to UTI which has resolved. 3. History of hypertension. HOSPITAL COURSE This is an 86-year female admitted with right-sided pubic rami fractures status post fall. The patient had a UTI and also had mild altered mental status which resolved. The patient remained stable. The patient did not qualify for inpatient admission so the patient cannot go to rehab. The patient actually needs to go to rehab. The patient's family wants the patient to home with home health care and then there will arrange rehab from there. The patient remained stable during the hospital stay. No acute event happened. The patient discharged in a satisfactory condition. Further details in the medical record. Homar Way MD EA/FAVIOLA /10:30 AM /1:21 PM
== END 2016-12-08 12:51 | disposition home or self-care (01) ==
LOC: PHED 14:52 → PHEDA 21:44 → PH3A 12-04 01:05
PROVIDERS: ADMIT Family Medicine; ATTEND Family Medicine
DX: R41.82 Altered mental status, unspecified (principal); S32.591A Other specified fracture of right pubis, initial encounter for closed fracture; N39.0 Urinary tract infection, site not specified; I10 Essential (primary) hypertension; I48.91 Unspecified atrial fibrillation; H91.90 Unspecified hearing loss, unspecified ear; Z90.49 Acquired absence of other specified parts of digestive tract; W19.XXXA Unspecified fall, initial encounter
CPT/HCPCS: 70450; 72170; 80048; 80053; 80162; 81001; 85025; 85610; 85730; 97110; 97116; 97162; 99285; G0378; G8987; G8988; J0360; P9612